=== PATIENT | female | born 1975 | race Caucasian/White ===

== ENCOUNTER 2018-09-29 10:53 | Day surgery (SDC) | payer BC ==
[2018-09-29] MEDS ORDERED: PROPOFOL 40 ML (13:11)
== END 2018-09-29 14:04 | disposition home or self-care (01) ==
LOC: GIL 10:53
DX: K29.50 Unspecified chronic gastritis without bleeding (principal); K20.8 Other esophagitis; B96.81 Helicobacter pylori [H. pylori] as the cause of diseases classified elsewhere
CPT/HCPCS: 43239; 84703; 88305; 88312